=== PATIENT | female | born 1990 | race Caucasian/White ===

== ENCOUNTER 2023-06-06 10:55 | Emergency (ER) | payer MEDICAID, OTHER ==
[~2023-06-06] VITALS: Ht 160 cm; Wt 43.1 kg
[2023-06-06 11:03] VITALS: O2SAT 100
[2023-06-06] MEDS ORDERED: PSEU-249 PO (11:22)
[2023-06-06] MEDS ORDERED: OXYM15MI4 NS (11:22)
[2023-06-06] MEDS ORDERED: AMOX-430 PO (11:22)
[2023-06-06] MEDS ORDERED: ACET1TAB23 PO (11:22)
[2023-06-06] MEDS ORDERED: FLUT16SP16 BNOSTRILS (11:22)
== END 2023-06-06 11:52 | disposition home or self-care (01) ==
LOC: ER 10:55
DX: J32.9 Chronic sinusitis, unspecified (principal); Z79.2 Long term (current) use of antibiotics; Z79.899 Other long term (current) drug therapy
CPT/HCPCS: A4606; A4663

== ENCOUNTER 2024-04-28 09:18 | Emergency (ER) | payer MEDICAID, OTHER ==
[~2024-04-28] VITALS: Ht 152.4 cm; Wt 43.1 kg
[~2024-04-28 09:18] MED LIST: ACET1TAB23 PO; AMOX-430 PO; FLUT16SP16 BNOSTRILS; OXYM15MI4 NS; PSEU-249 PO
[2024-04-28] MEDS ORDERED: PRED50TA PO (09:56)
[2024-04-28] MEDS ORDERED: AMOX-430 PO (09:57)
[2024-04-28 10:03] VITALS: BP 100/69; O2SAT 99
== END 2024-04-28 10:06 | disposition home or self-care (01) ==
LOC: ER 09:18
DX: J32.9 Chronic sinusitis, unspecified (principal); J98.01 Acute bronchospasm; Z79.52 Long term (current) use of systemic steroids
CPT/HCPCS: A4606; A4663